=== PATIENT | male | born 1960 | race Two or more races ===

== ENCOUNTER 2017-05-08 22:23 | Emergency (ER) | payer OTHER ==
[~2017-05-08] VITALS: Ht 170.2 cm; Wt 75.3 kg
[2017-05-08 22:26] VITALS: BP 158/85
== END 2017-05-08 23:05 | disposition home or self-care (01) ==
LOC: ED 22:59
DX: J32.0 Chronic maxillary sinusitis (principal); J32.1 Chronic frontal sinusitis; J30.2 Other seasonal allergic rhinitis
CPT/HCPCS: 99283

== ENCOUNTER 2017-07-03 18:38 | Emergency (ER) | payer OTHER ==
[~2017-07-03] VITALS: Ht 170.2 cm; Wt 75.3 kg
[2017-07-03 18:40] VITALS: BP 139/78
== END 2017-07-03 19:18 | disposition home or self-care (01) ==
LOC: ED 19:16
DX: J32.9 Chronic sinusitis, unspecified (principal); J31.1 Chronic nasopharyngitis; J33.9 Nasal polyp, unspecified
CPT/HCPCS: 99281